=== PATIENT | male | born 1945 | race Two or more races ===

== ENCOUNTER 2020-09-11 13:37 | Inpatient (IN) | payer MEDICARE, OTHER ==
[~2020-09-11] VITALS: Ht 172.7 cm; Wt 92.4 kg
[~2020-09-11 13:37] MED LIST: ALL300T PO; CAR3125T PO; DOCU-94 PO; FERR140T3 PO; FUR40T GT; INSLANTI SC; LEVO200I5 PO; LOS50T GT; METF-372 PO
[2020-09-11 14:35] LABS: Basophils # (auto) 0 10 ^3/uL (0-0.2); Basophils % (auto) 0.4 % (0.0-2.0); Eosinophils # (auto) 0.1 10 ^3/uL (0-0.8); Eosinophils % (auto) 1.4 % (0.0-7.0); Hematocrit 33.3 % (41.0-53.0); Hemoglobin 10.6 g/dL (13.5-17.5); Lymphocytes # (auto) 1.3 10 ^3/uL (0.4-5.4); Lymphocytes % (auto) 14.7 % (10.0-50.0); Mean Corpuscular Hemoglobin 28.2 pg (28.0-32.0); Mean Corpuscular Hgb Conc. 31.9 g/dL (32.0-36.0); Mean Corpuscular Volume 88.2 fL (80.0-100.0); Monocytes # (auto) 0.5 10 ^3/uL (0-1.3); Monocytes % (auto) 5.7 % (0.0-12.0); Neutrophils % (auto) 77.8 % (37.0-80.0); Platelet Count (auto) 233 10^3/uL (140-450); Red Blood Cells 3.77 10^6/uL (4.5-5.90); Red Cell Distribution Width 17.7 % (11.8-14.3)
[2020-09-11 14:55] LABS: Albumin 2.7 g/dL (3.4-5.0); Anion Gap 7 (5-15); Calcium 8.3 mg/dL (8.5-10.1); Carbon Dioxide 14 mmol/L (21-32); Chloride 119 mmol/L (98-107); Glucose 243 mg/dL (74-106); Magnesium 1.9 mg/dL (1.6-2.6); Sodium 140 mmol/L (136-145)
[2020-09-11 15:01] LABS: Alanine Aminotransferase 18 U/L (16-61); Alkaline Phosphatase 96 U/L (45-117); Aspartate Aminotransferase 7 U/L (15-37); BUN/Creatinine Ratio 18.2; Bilirubin, Total 0.4 mg/dL (0.2-1.0); GFR African American 16 mL/min; GFR Non-African American 13 mL/min; Total Protein 6.1 g/dL (6.4-8.2)
[2020-09-11 15:10] LABS: Blood Urea Nitrogen 83 mg/dL (7-18); Potassium 5.7 mmol/L (3.5-5.1)
[2020-09-11] MEDS ORDERED: CALCIUM GLUC 4.65meq/50ml D5AE 50 ML IV ONE (16:00)
[2020-09-11] MEDS ORDERED: SODIUM BICARBONATE 8.4 % INJ 50ML VIAL IV ONE (16:00)
[2020-09-11] MEDS ORDERED: FUROSEMIDE 100 MG/10ML VIAL IV ONE (17:15)
[2020-09-11] MEDS: NIFEdipine ER 30 MG TAB PO SCH (17:53)
[2020-09-11] MEDS: SODIUM ZIRCONIUM CYCL 10 GM PAK PO SCH (17:53)
[2020-09-11] MEDS ORDERED: DEXTROSE (50%) 50ML SYRG IV PRN (18:45)
[2020-09-11 19:03] LABS: Phosphorus 6.2 mg/dL (2.5-4.90); Uric Acid 3.5 mg/dL (3.5-7.2)
[2020-09-11 19:30] LABS: Urine Amorphous Crystal FEW /hpf (None Seen); Urine Bacteria FEW /hpf (None Seen); Urine Blood TRACE /uL (Negative); Urine WBC 2 /hpf (0 - 3)
[2020-09-11 19:44] LABS: Protein, Urine 162.7 mg/dL (0.0-11.9)
--- NOTE | 2020-09-11 21:03 | NUR ---
ER CALLED CARDIO CONSULT WITH DR. AUSTIN.
[2020-09-11] MEDS ORDERED: hydrALAZINE HCL 20 MG/ML VL IV PRN (21:15)
[2020-09-11] MEDS ORDERED: InsuLIN REG 1unit/0.01ml Soln (100units/ml) SC SCH (22:00)
[2020-09-11] MEDS: ACCU-CHEK COMFORT CURVE STRIP VI SCH (22:00)
[2020-09-11 22:20] VITALS: BP 141/76
--- NOTE | 2020-09-11 22:30 | NUR ---
Telemetry admit from SARAH MARTIN admitted to Telemetry unit after SBAR received. Patient oriented to Loree Kaur, primary RN, unit, room, bed, and unit policies regarding patient care and visiting hours. Patient now on continuous telemetry monitoring, tele box # 65 and telemetry reading on arrival to unit is NSR 82. Patient placed on bedside oxygen, weighed by bedscale and encouraged to call if they need something. All questions and concerns addressed, patient verbalized understanding. Note:
[2020-09-11] MEDS ORDERED: LOSA-69 PO (22:47)
[2020-09-11] MEDS ORDERED: INFLUENZA QUAD 2020-2021 0.5 ML SYRG IM ONE (23:15)
[2020-09-12 05:00] VITALS: BP 115/57
[2020-09-12] MEDS: InsuLIN REG 1unit/0.01ml Soln (100units/ml) SC SCH ×4 (06:05→21:06)
[2020-09-12] MEDS: ACCU-CHEK COMFORT CURVE STRIP VI SCH ×4 (06:07→21:07)
[2020-09-12] MEDS: SODIUM ZIRCONIUM CYCL 10 GM PAK PO SCH ×3 (06:20→21:05)
[2020-09-12 06:23] LABS: Basophils # (auto) 0 10 ^3/uL (0-0.2); Basophils % (auto) 0.3 % (0.0-2.0); Eosinophils # (auto) 0.2 10 ^3/uL (0-0.8); Eosinophils % (auto) 1.6 % (0.0-7.0); Hematocrit 32.9 % (41.0-53.0); Hemoglobin 10.6 g/dL (13.5-17.5); Lymphocytes # (auto) 1.2 10 ^3/uL (0.4-5.4); Lymphocytes % (auto) 10.5 % (10.0-50.0); Mean Corpuscular Hemoglobin 28.2 pg (28.0-32.0); Mean Corpuscular Hgb Conc. 32.3 g/dL (32.0-36.0); Mean Corpuscular Volume 87.4 fL (80.0-100.0); Monocytes # (auto) 0.7 10 ^3/uL (0-1.3); Monocytes % (auto) 5.9 % (0.0-12.0); Neutrophils # (auto) 9.7 10 ^3/uL (1.6-8.6); Neutrophils % (auto) 81.7 % (37.0-80.0); Platelet Count (auto) 230 10^3/uL (140-450); Red Blood Cells 3.77 10^6/uL (4.5-5.90); Red Cell Distribution Width 17.1 % (11.8-14.3); White Blood Cell 11.8 10^3/uL (4.4-10.8)
[2020-09-12 06:54] LABS: Albumin 2.7 g/dL (3.4-5.0); Calcium 8.5 mg/dL (8.5-10.1); Potassium 5.4 mmol/L (3.5-5.1)
[2020-09-12 06:56] LABS: BUN/Creatinine Ratio 17.3
[2020-09-12 06:59] LABS: Bilirubin, Total 0.6 mg/dL (0.2-1.0); Total Protein 6.1 g/dL (6.4-8.2)
[2020-09-12 07:59] VITALS: BP 114/61
[2020-09-12] MEDS: FUROSEMIDE 20 MG/2 ML VIAL IV SCH ×2 (08:43→09:42)
[2020-09-12] MEDS: PANTOPRAZOLE 40 MG TAB PO SCH (08:44)
[2020-09-12] MEDS: NIFEdipine ER 30 MG TAB PO SCH (08:44)
[2020-09-12 12:30] VITALS: BP 155/74
[2020-09-12] MEDS ORDERED: DEXTROSE (50%) 50ML SYRG IV PRN ×2 (16:00)
[2020-09-12] MEDS: SODIUM BICARBONATE 50ML VIAL 50 ML in D5W 5% 1,000 ML IV SCH (16:17)
[2020-09-12 16:18] VITALS: BP 119/67
[2020-09-12] MEDS ORDERED: ACCU-CHEK COMFORT CURVE STRIP VI SCH (17:00)
[2020-09-12] MEDS ORDERED: InsuLIN REG 1unit/0.01ml Soln (100units/ml) SC SCH ×2 (17:00)
[2020-09-12] MEDS: SEVELAMER 800 MG TAB PO SCH (17:34)
--- NOTE | 2020-09-12 19:30 | NUR ---
Opening Shift Note Assumed care of patient, awake and alert. No S/S of distress/SOB or pain. Instructed on POC and to call for assist PRN, will continue to monitor for changes Q1hr and PRN.
[2020-09-12 22:00] VITALS: BP 139/72
[2020-09-13] MEDS: SODIUM BICARBONATE 50ML VIAL 50 ML in D5W 5% 1,000 ML IV SCH ×2 (03:46→12:12)
[2020-09-13 05:00] VITALS: BP 142/70
[2020-09-13] MEDS: SODIUM ZIRCONIUM CYCL 10 GM PAK PO SCH (06:00)
[2020-09-13] MEDS: ACCU-CHEK COMFORT CURVE STRIP VI SCH ×3 (06:00→17:08)
[2020-09-13] MEDS: InsuLIN REG 1unit/0.01ml Soln (100units/ml) SC SCH ×3 (06:02→17:08)
[2020-09-13 06:49] LABS: Basophils # (auto) 0 10 ^3/uL (0-0.2); Basophils % (auto) 0.4 % (0.0-2.0); Eosinophils # (auto) 0.3 10 ^3/uL (0-0.8); Eosinophils % (auto) 2.7 % (0.0-7.0); Hematocrit 31.5 % (41.0-53.0); Hemoglobin 10.2 g/dL (13.5-17.5); Lymphocytes # (auto) 1.3 10 ^3/uL (0.4-5.4); Lymphocytes % (auto) 14.3 % (10.0-50.0); Mean Corpuscular Hemoglobin 28.3 pg (28.0-32.0); Mean Corpuscular Hgb Conc. 32.5 g/dL (32.0-36.0); Mean Corpuscular Volume 87.2 fL (80.0-100.0); Monocytes # (auto) 0.7 10 ^3/uL (0-1.3); Monocytes % (auto) 6.9 % (0.0-12.0); Neutrophils # (auto) 7.1 10 ^3/uL (1.6-8.6); Neutrophils % (auto) 75.7 % (37.0-80.0); Platelet Count (auto) 212 10^3/uL (140-450); Red Blood Cells 3.61 10^6/uL (4.5-5.90); Red Cell Distribution Width 17.3 % (11.8-14.3); White Blood Cell 9.4 10^3/uL (4.4-10.8)
[2020-09-13 07:08] LABS: Calcium 8.1 mg/dL (8.5-10.1); Potassium 4.2 mmol/L (3.5-5.1)
[2020-09-13 07:12] LABS: Albumin 2.6 g/dL (3.4-5.0)
[2020-09-13 07:14] LABS: Bilirubin, Total 0.5 mg/dL (0.2-1.0); Total Protein 5.9 g/dL (6.4-8.2)
--- NOTE | 2020-09-13 07:21 | NUR ---
closing note endorsed care to day RN, no distress noted at this time
[2020-09-13] MEDS: PANTOPRAZOLE 40 MG TAB PO SCH (08:09)
[2020-09-13] MEDS: NIFEdipine ER 30 MG TAB PO SCH (08:09)
[2020-09-13 08:10] VITALS: BP 140/72
[2020-09-13] MEDS: SEVELAMER 800 MG TAB PO SCH ×2 (08:10→12:12)
[2020-09-13] MEDS: FUROSEMIDE 20 MG/2 ML VIAL IV SCH (08:10)
[2020-09-13] MEDS ORDERED: LEVOTHYROXINE SODIUM 50 MCG TAB PO ONE (11:30)
[2020-09-13] MEDS ORDERED: FURO1TAB31 PO (11:56)
[2020-09-13] MEDS ORDERED: NIFE1TAB31 PO (11:56)
[2020-09-13] MEDS ORDERED: SEVE800T PO (11:56)
[2020-09-13] MEDS ORDERED: INSREGI SC (12:02)
[2020-09-13] MEDS ORDERED: [UNRECOGNIZED DRUG - CODE] XX (12:02)
[2020-09-13 12:30] VITALS: BP 123/70
--- NOTE | 2020-09-13 12:38 | NUR ---
DR. LEPE AND EVONNE AWARE OF RENAL PANEL VALUES. PER DR. DOUGLASS; PT OK FOR DC.
--- NOTE | 2020-09-13 13:00 | NUR ---
BARRETT CATHETER DC'D, CATHETER INTACT. PT TOLERATE PROCEDURE WELL. PT VOIDED WELL POST-BARRETT REMOVAL.
[2020-09-13 14:00] VITALS: BP 123/70
--- NOTE | 2020-09-13 17:35 | NUR ---
DISCHARGE INSTRUCTIONS PROVIDED TO PT. PT VERBALIZED UNDERSTANDING FOR PRESCRIPTION ORDERS, CONTINUATION OF HOME MEDICATIONS AND STOPPAGE OF [place] PER MD'S INSTRUCTION. PT GIVEN THE INSULIN SLIDING SCALE PER MD'S REQUEST. EDUCATIONAL MATERIAL PROVIDED, ALL QUESTIONS AND CONCERNS ADDRESSED. IV CATHETER DC'D CATHETER INTACT, NO PHLEBITIS. TELE BOX REMOVED AND RETURNED TO TELE DEPT. PT SAFELY ESCORTED OUT OF UNIT VIA WHEELCHAIR. NO S/S OF DISTRESS.
[2020-09-13] MEDS ORDERED: CARVEDILOL 3.125 MG TAB PO SCH (22:00)
[2020-09-13] MEDS ORDERED: INSULIN LANTUS (GLARGINE) 1 /0.01ml (100units/ml) SC SCH (22:00)
[2020-09-14] MEDS ORDERED: LEVOTHYROXINE SODIUM 50 MCG TAB PO SCH (07:00)
[2020-09-14] MEDS ORDERED: ALLOPURINOL 100 MG TAB PO SCH (10:00)
== END 2020-09-13 18:00 | disposition home or self-care (01) | DRG 640 ==
LOC: ER 13:37 → TELE 18:33 → TELE-WESTW 22:21
PROVIDERS: ADMIT Internal Medicine; ATTEND Internal Medicine
DX: E87.5 Hyperkalemia (principal); N18.6 End stage renal disease; N17.9 Acute kidney failure, unspecified; I12.0 Hypertensive chronic kidney disease with stage 5 chronic kidney disease or end stage renal disease; E87.2 Acidosis; I16.0 Hypertensive urgency; E11.65 Type 2 diabetes mellitus with hyperglycemia; E66.9 Obesity, unspecified; D63.8 Anemia in other chronic diseases classified elsewhere; E03.9 Hypothyroidism, unspecified; E83.39 Other disorders of phosphorus metabolism; E11.21 Type 2 diabetes mellitus with diabetic nephropathy; E11.22 Type 2 diabetes mellitus with diabetic chronic kidney disease; E78.5 Hyperlipidemia, unspecified; N28.1 Cyst of kidney, acquired; Z80.3 Family history of malignant neoplasm of breast; Z83.3 Family history of diabetes mellitus; Z68.31 Body mass index [BMI] 31.0-31.9, adult
CPT/HCPCS: 36415; 51702; 76775; 80053; 81001; 82306; 82570; 82962; 83605; 83735; 83880; 83970; 84100; 84156; 84300; 84484; 84550; 85025; 93005; 93306; 96365; 96375; G0378; J0610; J1815

== ENCOUNTER 2021-02-04 20:27 | Inpatient (IN) | payer OTHER ==
[~2021-02-04] VITALS: Ht 162.6 cm; Wt 94.6 kg
[~2021-02-04 20:27] MED LIST changes: -DOCU-94 PO; -FERR140T3 PO; -FUR40T GT; +FURO1TAB31 PO; +INSREGI SC; -LOS50T GT; -METF-372 PO; +NIFE1TAB31 PO; +SEVE800T PO; +[UNRECOGNIZED DRUG - CODE] XX
[2021-02-04] MEDS ORDERED: SODIUM CHLORIDE 0.9% 1,000 ML IV ONE (21:15)
[2021-02-04 22:06] LABS: Basophils # (auto) 0 10 ^3/uL (0-0.2); Basophils % (auto) 0.4 % (0.0-2.0); Eosinophils # (auto) 0 10 ^3/uL (0-0.8); Eosinophils % (auto) 0.3 % (0.0-7.0); Hematocrit 28.5 % (41.0-53.0); Hemoglobin 9.3 g/dL (13.5-17.5); Lymphocytes # (auto) 0.7 10 ^3/uL (0.4-5.4); Lymphocytes % (auto) 8.4 % (10.0-50.0); Mean Corpuscular Hemoglobin 29.9 pg (28.0-32.0); Mean Corpuscular Hgb Conc. 32.5 g/dL (32.0-36.0); Mean Corpuscular Volume 92.1 fL (80.0-100.0); Monocytes # (auto) 0.4 10 ^3/uL (0-1.3); Monocytes % (auto) 4.9 % (0.0-12.0); Neutrophils # (auto) 6.7 10 ^3/uL (1.6-8.6); Nucleated Red Blood Cells % 0.3 %; Platelet Count (auto) 198 10^3/uL (140-450); Red Blood Cells 3.09 10^6/uL (4.5-5.90); Red Cell Distribution Width 17.8 % (11.8-14.3); White Blood Cell 7.7 10^3/uL (4.4-10.8)
[2021-02-04] MEDS ORDERED: NIFE-3 PO (22:18)
[2021-02-04] MEDS ORDERED: ALBU108A14 IN (22:18)
[2021-02-04] MEDS ORDERED: ASPI-543 PO (22:18)
[2021-02-04] MEDS ORDERED: HYDR10TA26 PO (22:18)
[2021-02-04] MEDS ORDERED: PRAV20TA3 PO (22:18)
[2021-02-04 22:26] LABS: Albumin 2.6 g/dL (3.4-5.0); Calcium 6.4 mg/dL (8.5-10.1)
[2021-02-04 22:31] LABS: BUN/Creatinine Ratio 15.4; Bilirubin, Total 0.3 mg/dL (0.2-1.0); Total Protein 5.7 g/dL (6.4-8.2)
[2021-02-04 22:35] LABS: Potassium 6.9 mmol/L (3.5-5.1)
[2021-02-04 22:42] LABS: INR 1.04 (0.9-1.15); Partial Thromboplastin Time 43.6 sec (23.0-31.2)
[2021-02-04] MEDS ORDERED: ALBUTEROL SULF 2.5 MG/0.5ML(0.5%) NEB SOLN NEB ONE (22:45)
[2021-02-04] MEDS ORDERED: DEXTROSE (50%) 50ML SYRG IV ONE (22:45)
[2021-02-04] MEDS ORDERED: SODIUM ZIRCONIUM CYCL 10 GM PAK PO ONE (22:45)
[2021-02-04] MEDS ORDERED: SODIUM BICARBONATE 8.4% INJ 50ML SYRINGE IV ONE (22:45)
[2021-02-04] MEDS ORDERED: InsuLIN REG 1unit/0.01ml Soln (100units/ml) IV ONE (22:45)
[2021-02-04] MEDS ORDERED: CALCIUM GLUC 1,000mg/50ml-NS 50 ML IV ONE (22:45)
[2021-02-04] MEDS ORDERED: FUROSEMIDE 20 MG/2 ML VIAL IV ONE (23:00)
[2021-02-05] VITALS (10 sets, daily range): BP systolic 120–178; BP diastolic 58–78
[2021-02-05] MEDS ORDERED: ALBUTEROL SULF 2.5 MG/0.5ML(0.5%) NEB SOLN NEB ONE ×2 (02:00→09:45)
[2021-02-05] MEDS ORDERED: SODIUM ZIRCONIUM CYCL 10 GM PAK PO ONE ×2 (02:00→09:45)
[2021-02-05] MEDS ORDERED: SODIUM BICARBONATE 8.4% INJ 50ML SYRINGE IV ONE (02:00)
[2021-02-05] MEDS ORDERED: DEXTROSE (50%) 50ML SYRG IV ONE ×2 (02:00→09:45)
[2021-02-05] MEDS ORDERED: CALCIUM GLUC 1,000mg/50ml-NS 50 ML IV ONE (02:00)
[2021-02-05] MEDS ORDERED: InsuLIN REG 1unit/0.01ml Soln (100units/ml) IV ONE ×2 (02:00→09:45)
[2021-02-05] MEDS ORDERED: SODIUM BICARBONATE 50ML VIAL 50 ML in SOD CHL 0.45% 1,000 ML IV ONE (02:15)
[2021-02-05] MEDS ORDERED: SODIUM BICARBONATE 8.4 % INJ 50ML VIAL IV ONE ×2 (02:15→09:45)
[2021-02-05] MEDS ORDERED: MORPHINE SULF INJ 2 MG/ML SYRINGE 1ML IV PRN (02:30)
[2021-02-05] MEDS ORDERED: ONDANSETRON HCL 4 MG/2 ML VIAL IV PRN (02:30)
[2021-02-05] MEDS ORDERED: NITROGLYCERIN 0.4 MG SL TAB SL PRN (02:30)
[2021-02-05] MEDS ORDERED: DEXTROSE (50%) 50ML SYRG IV PRN (02:30)
[2021-02-05] MEDS: ACCU-CHEK COMFORT CURVE STRIP VI SCH ×3 (06:00→18:02)
[2021-02-05] MEDS: InsuLIN REG 1unit/0.01ml Soln (100units/ml) SC SCH ×3 (06:00→18:00)
[2021-02-05 06:47] LABS: BUN/Creatinine Ratio 15.2; Calcium 6.8 mg/dL (8.5-10.1)
[2021-02-05 06:51] LABS: Potassium 5.7 mmol/L (3.5-5.1)
[2021-02-05] MEDS ORDERED: PATI1POW PO (08:41)
[2021-02-05] MEDS ORDERED: FERR-20 PO (08:41)
[2021-02-05] MEDS ORDERED: HEPARIN SODIUM (PORCINE) 5000 UNITS/ML 1ML VIAL ONE (10:57)
[2021-02-05] MEDS: CARVEDILOL 3.125 MG TAB PO SCH ×2 (11:11→22:00)
[2021-02-05] MEDS: PANTOPRAZOLE 40 MG TAB PO SCH (11:11)
[2021-02-05] MEDS ORDERED: LORazepam 2MG/ML-1ML VIAL IV ONE (11:15)
[2021-02-05] MEDS ORDERED: LORazepam 2MG/ML-1ML VIAL ONE (11:16)
[2021-02-05 12:04] LABS: Free T4 (Free Thyroxine) 0.77 ng/dL (0.89-1.76)
[2021-02-05 12:05] LABS: Free T3 1.08 pg/mL (2.3-4.2)
[2021-02-05 12:23] LABS: Urine Amorphous Crystal MOD /hpf (None Seen); Urine Bacteria FEW /hpf (None Seen); Urine Blood 1+ /uL (Negative); Urine Hyaline Cast FEW /lpf (0 - 2); Urine Specific Gravity 1.013 (1.001-1.035); Urine WBC 90 /hpf (0 - 3); Urine WBC Clumps PRESENT /hpf (None Seen)
[2021-02-05] MEDS ORDERED: SODIUM CHL 0.9% 1000 ML BAG XX ONE (13:15)
[2021-02-05 13:37] LABS: BUN/Creatinine Ratio 14.8; Calcium 6.6 mg/dL (8.5-10.1); Potassium 4.8 mmol/L (3.5-5.1)
[2021-02-05 13:45] LABS: % Iron Saturation 35.6 % (20-55)
[2021-02-05 14:29] LABS: Basophils # (auto) 0 10 ^3/uL (0-0.2); Basophils % (auto) 0.2 % (0.0-2.0); Eosinophils % (auto) 0.6 % (0.0-7.0); Lymphocytes # (auto) 0.8 10 ^3/uL (0.4-5.4); Monocytes # (auto) 0.6 10 ^3/uL (0-1.3)
[2021-02-05 14:31] LABS: Eosinophils # (auto) 0.1 10 ^3/uL (0-0.8); Hematocrit 22.6 % (41.0-53.0); Hemoglobin 7.6 g/dL (13.5-17.5); Lymphocytes % (auto) 9.7 % (10.0-50.0); Mean Corpuscular Hemoglobin 29.9 pg (28.0-32.0); Mean Corpuscular Hgb Conc. 33.7 g/dL (32.0-36.0); Mean Corpuscular Volume 88.7 fL (80.0-100.0); Monocytes % (auto) 8.2 % (0.0-12.0); Neutrophils # (auto) 6.4 10 ^3/uL (1.6-8.6); Neutrophils % (auto) 81.3 % (37.0-80.0); Nucleated Red Blood Cells % 0.2 %; Platelet Count (auto) 192 10^3/uL (140-450); Red Blood Cells 2.55 10^6/uL (4.5-5.90); Red Cell Distribution Width 16.8 % (11.8-14.3); White Blood Cell 7.8 10^3/uL (4.4-10.8)
[2021-02-05] MEDS: FUROSEMIDE 40 MG TAB PO SCH (18:00)
[2021-02-05] MEDS ORDERED: EPOETIN ALFA-EPBX 10,000 UNIT/1ML VIAL SC ONE (21:00)
[2021-02-05] MEDS: ATORVASTATIN 20 MG TAB PO SCH (22:00)
[2021-02-05] MEDS ORDERED: hydrALAZINE HCL 20 MG/ML VL ONE (23:57)
[2021-02-05] MEDS: hydrALAZINE HCL 20 MG/ML VL IV PRN (23:59)
[2021-02-06] VITALS (20 sets, daily range): BP systolic 136–206; BP diastolic 56–92
[2021-02-06] MEDS: ACCU-CHEK COMFORT CURVE STRIP VI SCH ×4 (00:06→18:00)
[2021-02-06] MEDS: FUROSEMIDE 40 MG TAB PO SCH ×2 (06:00→16:39)
[2021-02-06] MEDS: InsuLIN REG 1unit/0.01ml Soln (100units/ml) SC SCH ×4 (06:00→18:44)
[2021-02-06 06:42] LABS: Basophils # (auto) 0 10 ^3/uL (0-0.2); Eosinophils # (auto) 0.1 10 ^3/uL (0-0.8); Lymphocytes # (auto) 1.1 10 ^3/uL (0.4-5.4); Mean Corpuscular Hemoglobin 29.7 pg (28.0-32.0); Mean Corpuscular Hgb Conc. 33.8 g/dL (32.0-36.0); Nucleated Red Blood Cells % 0.1 %
[2021-02-06] MEDS: LEVOTHYROXINE SODIUM 100 MCG TAB PO SCH (06:42)
[2021-02-06 06:43] LABS: BUN/Creatinine Ratio 13.1; Calcium 6.9 mg/dL (8.5-10.1); Phosphorus 6.3 mg/dL (2.5-4.90); Potassium 4.1 mmol/L (3.5-5.1)
[2021-02-06 06:46] LABS: Basophils % (auto) 0.4 % (0.0-2.0); Eosinophils % (auto) 0.5 % (0.0-7.0); Hematocrit 23.7 % (41.0-53.0); Lymphocytes % (auto) 11.3 % (10.0-50.0); Mean Corpuscular Volume 87.9 fL (80.0-100.0); Monocytes % (auto) 10.2 % (0.0-12.0); Neutrophils # (auto) 7.8 10 ^3/uL (1.6-8.6); Neutrophils % (auto) 77.6 % (37.0-80.0); Platelet Count (auto) 197 10^3/uL (140-450); Red Cell Distribution Width 16.4 % (11.8-14.3)
[2021-02-06] MEDS ORDERED: SODIUM CHL 0.9% 1000 ML BAG XX ONE (07:00)
[2021-02-06] MEDS: CARVEDILOL 3.125 MG TAB PO SCH ×2 (10:00→21:51)
[2021-02-06] MEDS: PANTOPRAZOLE 40 MG TAB PO SCH (10:00)
[2021-02-06 15:11] LABS: Hepatitis A Ab IgM Negative; Hepatitis B Core IgM Negative; Hepatitis B Surface Antigen Negative (Negative); Hepatitis C Antibody Negative (Negative)
[2021-02-06] MEDS: PIPERACILLIN-TAZOB 2.25GM 50 ML IV SCH ×2 (15:26→21:50)
[2021-02-06] MEDS ORDERED: ACETAMINOPHEN 500 MG TAB PO PRN (15:45)
[2021-02-06] MEDS ORDERED: HYDROcodone-ACET 5/325MG TAB PO PRN (15:45)
[2021-02-06] MEDS: amLODIPine BESYLATE 5 MG TAB PO SCH (16:38)
[2021-02-06] MEDS: hydrALAZINE HCL 20 MG/ML VL IV PRN (18:28)
[2021-02-06] MEDS ORDERED: EPOETIN ALFA-EPBX 10,000 UNIT/1ML VIAL SC ONE (21:00)
[2021-02-06] MEDS: LINEZOLID 600MG/300ML 300 ML IV SCH (21:50)
[2021-02-06] MEDS: ATORVASTATIN 20 MG TAB PO SCH (21:51)
[2021-02-07] VITALS (14 sets, daily range): BP systolic 107–149; BP diastolic 51–72
[2021-02-07] MEDS: FUROSEMIDE 40 MG TAB PO SCH ×2 (05:37→18:00)
[2021-02-07] MEDS: PIPERACILLIN-TAZOB 2.25GM 50 ML IV SCH (05:37)
[2021-02-07] MEDS: LEVOTHYROXINE SODIUM 100 MCG TAB PO SCH (05:37)
[2021-02-07] MEDS: ACCU-CHEK COMFORT CURVE STRIP VI SCH ×4 (05:38→18:00)
[2021-02-07 06:40] LABS: Basophils # (auto) 0 10 ^3/uL (0-0.2); Basophils % (auto) 0.2 % (0.0-2.0); Eosinophils # (auto) 0.1 10 ^3/uL (0-0.8); Nucleated Red Blood Cells % 0.1 %
[2021-02-07 06:42] LABS: Hematocrit 23.9 % (41.0-53.0); Hemoglobin 8.2 g/dL (13.5-17.5); Lymphocytes # (auto) 1.2 10 ^3/uL (0.4-5.4); Lymphocytes % (auto) 12.5 % (10.0-50.0); Mean Corpuscular Hemoglobin 30.1 pg (28.0-32.0); Mean Corpuscular Hgb Conc. 34.1 g/dL (32.0-36.0); Mean Corpuscular Volume 88.2 fL (80.0-100.0); Monocytes # (auto) 1.2 10 ^3/uL (0-1.3); Monocytes % (auto) 11.8 % (0.0-12.0); Neutrophils # (auto) 7.3 10 ^3/uL (1.6-8.6); Neutrophils % (auto) 74.5 % (37.0-80.0); Platelet Count (auto) 185 10^3/uL (140-450); Red Blood Cells 2.71 10^6/uL (4.5-5.90); Red Cell Distribution Width 16.6 % (11.8-14.3); White Blood Cell 9.8 10^3/uL (4.4-10.8)
[2021-02-07 06:57] LABS: BUN/Creatinine Ratio 10.5; Calcium 6.8 mg/dL (8.5-10.1); Potassium 3.7 mmol/L (3.5-5.1)
[2021-02-07] MEDS: amLODIPine BESYLATE 5 MG TAB PO SCH (10:00)
[2021-02-07] MEDS: CARVEDILOL 3.125 MG TAB PO SCH ×2 (10:00→13:04)
[2021-02-07] MEDS: PANTOPRAZOLE 40 MG TAB PO SCH (10:19)
[2021-02-07] MEDS: LINEZOLID 600MG/300ML 300 ML IV SCH (10:20)
[2021-02-07] MEDS: InsuLIN REG 1unit/0.01ml Soln (100units/ml) SC SCH ×3 (12:00→18:00)
[2021-02-07] MEDS ORDERED: AMOXICILLIN/CLAVULAN 500 MG TAB PO ONE (13:45)
[2021-02-07] MEDS ORDERED: fentaNYL CITRATE 100 MCG/2 ML VL ONE (13:47)
[2021-02-07] MEDS ORDERED: LIDOCAINE 2%HCL (LOCAL ANESTH.) INJ 20ML MDV ONE (13:47)
[2021-02-07] MEDS ORDERED: MIDAZOLAM HCL 1MG/1ML-2 ML VIAL ONE (13:47)
[2021-02-07] MEDS ORDERED: AMOX500T92 PO (14:15)
[2021-02-07] MEDS ORDERED: LEVO200I5 PO (14:15)
[2021-02-07] MEDS ORDERED: CAR3125T PO (14:15)
[2021-02-07] MEDS ORDERED: HEPARIN SODIUM (PORCINE) 5000 UNITS/ML 1ML VIAL ONE (14:52)
[2021-02-08] MEDS ORDERED: AMOXICILLIN/CLAVULAN 500 MG TAB PO SCH (10:00)
== END 2021-02-07 20:10 | disposition home health service (06) | DRG 871 ==
LOC: EDBD 20:27 → ER 20:28 → TELE 20:29 → DOU IN ICU 02-05 04:42
PROVIDERS: ADMIT Nurse Practitioner; ATTEND Internal Medicine
PROC: 5A1D70Z Performance of Urinary Filtration, Intermittent, Less than 6 Hours Per Day (ICD-10-PCS; principal; 2021-02-05)
PROC: 06HY33Z Insertion of Infusion Device into Lower Vein, Percutaneous Approach (ICD-10-PCS; 2021-02-05)
PROC: B54BZZA Ultrasonography of Right Lower Extremity Veins, Guidance (ICD-10-PCS; 2021-02-05)
PROC: 0JH63XZ Insertion of Tunneled Vascular Access Device into Chest Subcutaneous Tissue and Fascia, Percutaneous Approach (ICD-10-PCS; 2021-02-07)
PROC: 02H633Z Insertion of Infusion Device into Right Atrium, Percutaneous Approach (ICD-10-PCS; 2021-02-07)
PROC: B548ZZA Ultrasonography of Superior Vena Cava, Guidance (ICD-10-PCS; 2021-02-07)
DX: A41.9 Sepsis, unspecified organism (principal); E43 Unspecified severe protein-calorie malnutrition; J96.01 Acute respiratory failure with hypoxia; G93.41 Metabolic encephalopathy; N18.6 End stage renal disease; N17.9 Acute kidney failure, unspecified; E87.0 Hyperosmolality and hypernatremia; J98.11 Atelectasis; N39.0 Urinary tract infection, site not specified; I13.2 Hypertensive heart and chronic kidney disease with heart failure and with stage 5 chronic kidney disease, or end stage renal disease; I50.32 Chronic diastolic (congestive) heart failure; Z20.822 Contact with and (suspected) exposure to COVID-19; E87.5 Hyperkalemia; E83.51 Hypocalcemia; D63.8 Anemia in other chronic diseases classified elsewhere; D63.1 Anemia in chronic kidney disease; E11.22 Type 2 diabetes mellitus with diabetic chronic kidney disease; Z68.32 Body mass index [BMI] 32.0-32.9, adult; Z79.82 Long term (current) use of aspirin; Z79.899 Other long term (current) drug therapy; Z79.4 Long term (current) use of insulin
CPT/HCPCS: 36415; 36600; 70450; 71045; 76775; 76942; 80048; 80053; 80074; 81001; 82140; 82728; 82805; 82962; 83540; 83550; 83605; 83880; 84100; 84132; 84439; 84443; 84481; 84484; 85025; 85379; 85610; 85730; 86850; 86900; 86901; 87040; 87081; 87086; 87426; 90935; 93005; 93970; 94640; 94644; 94645; 97163; 99152; 99153; 99291; G0378; J1642; J1815; J2250; J2543

== ENCOUNTER 2021-09-22 08:39 | Inpatient (IN) | payer OTHER ==
[~2021-09-22] VITALS: Ht 170.2 cm; Wt 97.9 kg
[~2021-09-22 08:39] MED LIST changes: +ALBU108A14 IN; +AMOX500T92 PO; +ASPI-543 PO; +FERR-20 PO; -INSREGI SC; +NIFE-3 PO; -NIFE1TAB31 PO; +PRAV20TA3 PO; -SEVE800T PO; -[UNRECOGNIZED DRUG - CODE] XX
[2021-09-22] MEDS ORDERED: FUROSEMIDE 40 MG/4 ML VIAL IV ONE (10:00)
[2021-09-22 10:22] LABS: Basophils # (auto) 0.1 10 ^3/uL (0-0.2); Basophils % (auto) 0.4 % (0.0-2.0); Eosinophils # (auto) 0 10 ^3/uL (0-0.8); Eosinophils % (auto) 0.1 % (0.0-7.0); Hematocrit 35.7 % (41.0-53.0); Hemoglobin 11.5 g/dL (13.5-17.5); Lymphocytes # (auto) 0.8 10 ^3/uL (0.4-5.4); Lymphocytes % (auto) 5.7 % (10.0-50.0); Mean Corpuscular Hemoglobin 27.8 pg (28.0-32.0); Mean Corpuscular Hgb Conc. 32.2 g/dL (32.0-36.0); Mean Corpuscular Volume 86.3 fL (80.0-100.0); Monocytes # (auto) 0.7 10 ^3/uL (0-1.3); Neutrophils # (auto) 12.2 10 ^3/uL (1.6-8.6); Neutrophils % (auto) 88.8 % (37.0-80.0); Red Blood Cells 4.13 10^6/uL (4.5-5.90); Red Cell Distribution Width 14.4 % (11.8-14.3); White Blood Cell 13.7 10^3/uL (4.4-10.8)
[2021-09-22 10:47] LABS: Calcium 8.8 mg/dL (8.5-10.1); Potassium 4.8 mmol/L (3.5-5.1)
[2021-09-22 10:54] LABS: BUN/Creatinine Ratio 11.1; Bilirubin, Total 0.7 mg/dL (0.2-1.0); Total Protein 7.2 g/dL (6.4-8.2)
[2021-09-22] MEDS ORDERED: MORPHINE SULFATE 4 MG/ML SYR/VIAL IV PRN (13:30)
[2021-09-22] MEDS ORDERED: HYDROcodone-ACET 5/325MG TAB PO PRN (13:30)
[2021-09-22] MEDS ORDERED: MORPHINE SULFATE INJECTION 2 MG/ML SYRG IV PRN (13:30)
[2021-09-22] MEDS ORDERED: NITROGLYCERIN 0.4 MG SL TAB SL PRN (13:30)
[2021-09-22] MEDS ORDERED: ONDANSETRON HCL 4 MG/2 ML VIAL IV PRN (13:30)
[2021-09-22] MEDS ORDERED: DEXTROSE (50%) 50ML SYRG IV PRN (14:00)
[2021-09-22] MEDS ORDERED: VANCOMYCIN PER PHARMACY 0 MG IV SCH (14:00)
[2021-09-22] MEDS ORDERED: FUROSEMIDE 100 MG/10ML VIAL IV ONE (14:00)
[2021-09-22] MEDS ORDERED: VANCOMYCIN 1GM/250ML 250 ML IV ONE (15:00)
[2021-09-22] MEDS: InsuLIN REG 1unit/0.01ml Soln (100units/ml) SC SCH ×2 (16:44→22:00)
[2021-09-22] MEDS: ACCU-CHEK COMFORT CURVE STRIP VI SCH ×2 (16:47→22:25)
[2021-09-22] MEDS: FERROUS SULFATE 325mg EC TAB PO SCH (18:14)
[2021-09-22] MEDS: ALBUTEROL SULF 2.5 MG/0.5ML(0.5%) NEB SOLN NEB SCH (18:19)
[2021-09-22 19:25] VITALS: BP 156/68
[2021-09-22 20:38] LABS: Urine Bacteria FEW /hpf (None Seen); Urine Blood 3+ /uL (Negative); Urine Specific Gravity 1.011 (1.001-1.035); Urine WBC 68 /hpf (0 - 3)
[2021-09-22 21:25] VITALS: BP 178/76
[2021-09-22] MEDS: PIPERACILLIN-TAZOB 2.25GM 50 ML IV SCH (22:24)
[2021-09-22] MEDS: INSULIN LANTUS (GLARGINE) 1 /0.01ml (100units/ml) SC SCH (22:25)
[2021-09-22] MEDS: CARVEDILOL 3.125 MG TAB PO SCH (22:26)
[2021-09-22] MEDS: hydrALAZINE HCL 20 MG/ML VL IV PRN (23:18)
[2021-09-23] MEDS: ALBUTEROL SULF 2.5 MG/0.5ML(0.5%) NEB SOLN NEB SCH ×4 (00:03→18:05)
[2021-09-23 05:00] VITALS: BP 172/76
[2021-09-23] MEDS: hydrALAZINE HCL 20 MG/ML VL IV PRN (05:04)
[2021-09-23] MEDS: ACCU-CHEK COMFORT CURVE STRIP VI SCH ×4 (06:35→22:14)
[2021-09-23] MEDS: LEVOTHYROXINE SODIUM 100 MCG TAB PO SCH (06:35)
[2021-09-23] MEDS: InsuLIN REG 1unit/0.01ml Soln (100units/ml) SC SCH ×4 (06:36→22:00)
[2021-09-23] MEDS: ALBUMIN 25% 100 ML IV SCH ×3 (06:56→07:05)
[2021-09-23] MEDS ORDERED: SODIUM CHL 0.9% 1000 ML BAG XX ONE (07:00)
[2021-09-23 09:00] VITALS: BP 121/57
[2021-09-23 09:02] LABS: Basophils # (auto) 0.1 10 ^3/uL (0-0.2); Basophils % (auto) 0.5 % (0.0-2.0); Eosinophils # (auto) 0 10 ^3/uL (0-0.8); Hematocrit 36.6 % (41.0-53.0); Hemoglobin 11.8 g/dL (13.5-17.5); Lymphocytes # (auto) 0.7 10 ^3/uL (0.4-5.4); Lymphocytes % (auto) 3.7 % (10.0-50.0); Mean Corpuscular Hemoglobin 27.8 pg (28.0-32.0); Mean Corpuscular Hgb Conc. 32.2 g/dL (32.0-36.0); Mean Corpuscular Volume 86.2 fL (80.0-100.0); Monocytes % (auto) 5.5 % (0.0-12.0); Neutrophils # (auto) 16.2 10 ^3/uL (1.6-8.6); Neutrophils % (auto) 90.3 % (37.0-80.0); Red Blood Cells 4.25 10^6/uL (4.5-5.90); Red Cell Distribution Width 14.8 % (11.8-14.3); White Blood Cell 17.9 10^3/uL (4.4-10.8)
[2021-09-23 09:20] LABS: Calcium 9.4 mg/dL (8.5-10.1); Potassium 3.8 mmol/L (3.5-5.1)
[2021-09-23 09:26] LABS: BUN/Creatinine Ratio 12.2; Bilirubin, Total 1.3 mg/dL (0.2-1.0); Phosphorus 2.8 mg/dL (2.5-4.90)
[2021-09-23] MEDS ORDERED: FUROSEMIDE 40 MG TAB PO SCH (10:00)
[2021-09-23] MEDS: FERROUS SULFATE 325mg EC TAB PO SCH ×2 (10:29→18:00)
[2021-09-23] MEDS: FUROSEMIDE 100 MG/10ML VIAL IV SCH (10:30)
[2021-09-23] MEDS: CARVEDILOL 3.125 MG TAB PO SCH ×2 (10:31→21:55)
[2021-09-23] MEDS: PRAVASTATIN SODIUM 20 MG TAB PO SCH (10:31)
[2021-09-23] MEDS: ASPirin-EC 81 mg tab PO SCH (10:31)
[2021-09-23] MEDS: PIPERACILLIN-TAZOB 2.25GM 50 ML IV SCH ×2 (10:31→21:54)
[2021-09-23] MEDS: ALLOPURINOL 300 MG TAB PO SCH (10:32)
[2021-09-23] MEDS: NIFEdipine ER 30 MG TAB PO SCH (10:32)
[2021-09-23 12:28] VITALS: BP 147/70
[2021-09-23] MEDS ORDERED: BISACODYL 5 MG EC TAB PO ONE (14:00)
[2021-09-23] MEDS ORDERED: VANCOMYCIN 1GM/250ML 250 ML IV ONE (14:00)
[2021-09-23 17:09] VITALS: BP 138/67
[2021-09-23 20:00] VITALS: BP 123/56
[2021-09-23] MEDS ORDERED: EPOETIN ALFA-EPBX 10,000 UNIT/1ML VIAL SC ONE (21:00)
[2021-09-23] MEDS: HEPARIN SODIUM (PORCINE) 5000 UNITS/ML 1ML VIAL SC SCH (21:55)
[2021-09-23 22:07] VITALS: BP 123/56
[2021-09-23] MEDS: INSULIN LANTUS (GLARGINE) 1 /0.01ml (100units/ml) SC SCH (22:13)
[2021-09-24] MEDS: ALBUTEROL SULF 2.5 MG/0.5ML(0.5%) NEB SOLN NEB SCH ×5 (00:05→22:42)
[2021-09-24 04:57] VITALS: BP 140/75
[2021-09-24 06:08] LABS: Basophils # (auto) 0 10 ^3/uL (0-0.2); Basophils % (auto) 0.1 % (0.0-2.0); Eosinophils # (auto) 0 10 ^3/uL (0-0.8); Eosinophils % (auto) 0.1 % (0.0-7.0); Hematocrit 31.6 % (41.0-53.0); Hemoglobin 10.3 g/dL (13.5-17.5); Lymphocytes # (auto) 0.8 10 ^3/uL (0.4-5.4); Lymphocytes % (auto) 5.8 % (10.0-50.0); Mean Corpuscular Hgb Conc. 32.6 g/dL (32.0-36.0); Monocytes # (auto) 0.9 10 ^3/uL (0-1.3); Monocytes % (auto) 6.8 % (0.0-12.0); Neutrophils # (auto) 12.2 10 ^3/uL (1.6-8.6); Neutrophils % (auto) 87.2 % (37.0-80.0); Nucleated Red Blood Cells % 0.1 %; Red Blood Cells 3.68 10^6/uL (4.5-5.90); Red Cell Distribution Width 14.6 % (11.8-14.3)
[2021-09-24 06:32] LABS: BUN/Creatinine Ratio 11.9; Calcium 9.2 mg/dL (8.5-10.1); Magnesium 2.3 mg/dL (1.6-2.6); Potassium 4.4 mmol/L (3.5-5.1)
[2021-09-24] MEDS ORDERED: SODIUM CHL 0.9% 1000 ML BAG XX ONE (07:00)
[2021-09-24] MEDS: ACCU-CHEK COMFORT CURVE STRIP VI SCH ×4 (07:11→22:27)
[2021-09-24] MEDS: LEVOTHYROXINE SODIUM 100 MCG TAB PO SCH (07:11)
[2021-09-24] MEDS: InsuLIN REG 1unit/0.01ml Soln (100units/ml) SC SCH ×4 (07:13→22:00)
[2021-09-24 08:34] VITALS: BP 127/64
[2021-09-24] MEDS: FERROUS SULFATE 325mg EC TAB PO SCH ×2 (10:23→18:39)
[2021-09-24] MEDS: FUROSEMIDE 100 MG/10ML VIAL IV SCH (10:24)
[2021-09-24] MEDS: CARVEDILOL 3.125 MG TAB PO SCH ×2 (10:24→22:26)
[2021-09-24] MEDS: PIPERACILLIN-TAZOB 2.25GM 50 ML IV SCH ×2 (10:24→22:25)
[2021-09-24] MEDS: ALLOPURINOL 300 MG TAB PO SCH (10:25)
[2021-09-24] MEDS: ASPirin-EC 81 mg tab PO SCH (10:25)
[2021-09-24] MEDS: PRAVASTATIN SODIUM 20 MG TAB PO SCH (10:25)
[2021-09-24] MEDS: NIFEdipine ER 30 MG TAB PO SCH (10:25)
[2021-09-24] MEDS: HEPARIN SODIUM (PORCINE) 5000 UNITS/ML 1ML VIAL SC SCH ×2 (10:26→22:28)
[2021-09-24 13:00] VITALS: BP 124/72
[2021-09-24] MEDS: POLYETHYLENE GLYCOL 17 GM PWDR PO SCH (15:34)
[2021-09-24 16:30] VITALS: BP 124/59
[2021-09-24] MEDS: LACTULOSE 20Gm/30ML SOLN PO SCH (18:39)
[2021-09-24 20:00] VITALS: BP 104/59
[2021-09-24] MEDS ORDERED: EPOETIN ALFA-EPBX 10,000 UNIT/1ML VIAL SC ONE (21:00)
[2021-09-24 22:00] VITALS: BP 104/59
[2021-09-24] MEDS ORDERED: DOCUSATE ORAL LIQUID 100 MG/10 ML UD GT SCH (22:00)
[2021-09-24] MEDS: SENNA 8.6 MG TAB PO SCH (22:25)
[2021-09-24] MEDS: INSULIN LANTUS (GLARGINE) 1 /0.01ml (100units/ml) SC SCH (22:28)
[2021-09-25] VITALS (7 sets, daily range): BP systolic 96–125; BP diastolic 50–62
[2021-09-25] MEDS: LACTULOSE 20Gm/30ML SOLN PO SCH ×2 (00:06→05:40)
[2021-09-25] MEDS: ALBUTEROL SULF 2.5 MG/0.5ML(0.5%) NEB SOLN NEB SCH ×6 (01:59→21:46)
[2021-09-25] MEDS: LEVOTHYROXINE SODIUM 100 MCG TAB PO SCH (06:44)
[2021-09-25] MEDS: ACCU-CHEK COMFORT CURVE STRIP VI SCH ×4 (06:45→22:43)
[2021-09-25] MEDS: InsuLIN REG 1unit/0.01ml Soln (100units/ml) SC SCH ×4 (06:45→22:42)
[2021-09-25 06:47] LABS: Basophils # (auto) 0 10 ^3/uL (0-0.2); Basophils % (auto) 0.4 % (0.0-2.0); Eosinophils # (auto) 0.1 10 ^3/uL (0-0.8); Eosinophils % (auto) 0.8 % (0.0-7.0); Hematocrit 30.9 % (41.0-53.0); Hemoglobin 10.2 g/dL (13.5-17.5); Lymphocytes # (auto) 1.1 10 ^3/uL (0.4-5.4); Lymphocytes % (auto) 11.4 % (10.0-50.0); Mean Corpuscular Hemoglobin 28.3 pg (28.0-32.0); Mean Corpuscular Volume 85.6 fL (80.0-100.0); Monocytes # (auto) 0.9 10 ^3/uL (0-1.3); Monocytes % (auto) 8.9 % (0.0-12.0); Neutrophils # (auto) 7.8 10 ^3/uL (1.6-8.6); Neutrophils % (auto) 78.5 % (37.0-80.0); Red Blood Cells 3.61 10^6/uL (4.5-5.90)
[2021-09-25 06:57] LABS: Calcium 9.2 mg/dL (8.5-10.1); Potassium 4.5 mmol/L (3.5-5.1)
[2021-09-25 07:02] LABS: BUN/Creatinine Ratio 11.5; Magnesium 2.6 mg/dL (1.6-2.6)
[2021-09-25] MEDS: FUROSEMIDE 100 MG/10ML VIAL IV SCH (09:20)
[2021-09-25] MEDS: PIPERACILLIN-TAZOB 2.25GM 50 ML IV SCH ×2 (09:20→22:13)
[2021-09-25] MEDS: ALLOPURINOL 300 MG TAB PO SCH (09:21)
[2021-09-25] MEDS: ASPirin-EC 81 mg tab PO SCH (09:21)
[2021-09-25] MEDS: FERROUS SULFATE 325mg EC TAB PO SCH ×2 (09:21→17:45)
[2021-09-25] MEDS: POLYETHYLENE GLYCOL 17 GM PWDR PO SCH (09:21)
[2021-09-25] MEDS: PRAVASTATIN SODIUM 20 MG TAB PO SCH (09:21)
[2021-09-25] MEDS: NIFEdipine ER 30 MG TAB PO SCH (09:22)
[2021-09-25] MEDS: CARVEDILOL 3.125 MG TAB PO SCH ×2 (09:22→22:00)
[2021-09-25] MEDS: ACETAMINOPHEN 325 MG TAB PO PRN ×2 (09:23→17:49)
[2021-09-25] MEDS: HEPARIN SODIUM (PORCINE) 5000 UNITS/ML 1ML VIAL SC SCH ×2 (09:24→22:00)
[2021-09-25] MEDS ORDERED: DOCUSATE ORAL LIQUID 100 MG/10 ML UD PO SCH (10:00)
[2021-09-25] MEDS ORDERED: SODIUM CHL 0.9% 1000 ML BAG XX ONE (10:45)
[2021-09-25] MEDS ORDERED: DOCUSATE ORAL LIQUID 100 MG/10 ML UD PO PRN (12:30)
[2021-09-25] MEDS ORDERED: LACTULOSE 20Gm/30ML SOLN PO PRN (12:30)
[2021-09-25] MEDS ORDERED: IOHEXOL 350 MG/ML 100ML IJ ONE ×2 (14:39→15:28)
[2021-09-25] MEDS ORDERED: VANCOMYCIN 1GM/250ML 250 ML IV ONE (21:00)
[2021-09-25] MEDS ORDERED: EPOETIN ALFA-EPBX 10,000 UNIT/1ML VIAL SC ONE (21:00)
[2021-09-25] MEDS: SENNA 8.6 MG TAB PO SCH (22:14)
[2021-09-25] MEDS: INSULIN LANTUS (GLARGINE) 1 /0.01ml (100units/ml) SC SCH (22:43)
[2021-09-26] VITALS (7 sets, daily range): BP systolic 127–150; BP diastolic 65–91
[2021-09-26] MEDS: ALBUTEROL SULF 2.5 MG/0.5ML(0.5%) NEB SOLN NEB SCH ×6 (01:46→22:48)
[2021-09-26 06:13] LABS: Hematocrit 29.1 % (41.0-53.0); Hemoglobin 9.8 g/dL (13.5-17.5)
[2021-09-26 06:19] LABS: Potassium 4.4 mmol/L (3.5-5.1)
[2021-09-26 06:25] LABS: BUN/Creatinine Ratio 12.6
[2021-09-26] MEDS: InsuLIN REG 1unit/0.01ml Soln (100units/ml) SC SCH ×4 (06:42→22:15)
[2021-09-26] MEDS: LEVOTHYROXINE SODIUM 100 MCG TAB PO SCH (06:42)
[2021-09-26] MEDS: ACCU-CHEK COMFORT CURVE STRIP VI SCH ×4 (06:43→21:59)
[2021-09-26] MEDS ORDERED: SODIUM CHL 0.9% 1000 ML BAG XX ONE (07:00)
[2021-09-26] MEDS: FERROUS SULFATE 325mg EC TAB PO SCH ×2 (08:00→18:02)
[2021-09-26] MEDS: PIPERACILLIN-TAZOB 2.25GM 50 ML IV SCH ×2 (11:40→22:00)
[2021-09-26] MEDS: POLYETHYLENE GLYCOL 17 GM PWDR PO SCH (11:40)
[2021-09-26] MEDS: FUROSEMIDE 100 MG/10ML VIAL IV SCH ×2 (11:43→22:00)
[2021-09-26] MEDS: PRAVASTATIN SODIUM 20 MG TAB PO SCH (11:45)
[2021-09-26] MEDS: HEPARIN SODIUM (PORCINE) 5000 UNITS/ML 1ML VIAL SC SCH ×2 (11:45→22:15)
[2021-09-26] MEDS: ASPirin-EC 81 mg tab PO SCH (11:46)
[2021-09-26] MEDS: CARVEDILOL 3.125 MG TAB PO SCH ×2 (11:48→21:57)
[2021-09-26] MEDS: NIFEdipine ER 30 MG TAB PO SCH (11:49)
[2021-09-26] MEDS: ALLOPURINOL 300 MG TAB PO SCH (11:50)
[2021-09-26] MEDS ORDERED: EPOETIN ALFA-EPBX 10,000 UNIT/1ML VIAL SC ONE (21:00)
[2021-09-26] MEDS: SENNA 8.6 MG TAB PO SCH (21:57)
[2021-09-26] MEDS: INSULIN LANTUS (GLARGINE) 1 /0.01ml (100units/ml) SC SCH (22:06)
[2021-09-27] MEDS: ALBUTEROL SULF 2.5 MG/0.5ML(0.5%) NEB SOLN NEB SCH ×5 (02:50→14:10)
[2021-09-27 05:00] VITALS: BP 134/57
[2021-09-27] MEDS: ACCU-CHEK COMFORT CURVE STRIP VI SCH ×2 (06:29→11:30)
[2021-09-27] MEDS: InsuLIN REG 1unit/0.01ml Soln (100units/ml) SC SCH ×2 (06:30→11:30)
[2021-09-27] MEDS: LEVOTHYROXINE SODIUM 100 MCG TAB PO SCH (06:31)
[2021-09-27 08:00] VITALS: BP 143/59
[2021-09-27] MEDS: FERROUS SULFATE 325mg EC TAB PO SCH (08:08)
[2021-09-27 09:00] VITALS: BP 143/59
[2021-09-27] MEDS: PIPERACILLIN-TAZOB 2.25GM 50 ML IV SCH (10:23)
[2021-09-27] MEDS: FUROSEMIDE 100 MG/10ML VIAL IV SCH (10:24)
[2021-09-27] MEDS: POLYETHYLENE GLYCOL 17 GM PWDR PO SCH (10:24)
[2021-09-27] MEDS: ALLOPURINOL 300 MG TAB PO SCH (10:25)
[2021-09-27] MEDS: ASPirin-EC 81 mg tab PO SCH (10:25)
[2021-09-27] MEDS: PRAVASTATIN SODIUM 20 MG TAB PO SCH (10:26)
[2021-09-27] MEDS: CARVEDILOL 3.125 MG TAB PO SCH (10:26)
[2021-09-27] MEDS: NIFEdipine ER 30 MG TAB PO SCH (10:28)
[2021-09-27] MEDS: HEPARIN SODIUM (PORCINE) 5000 UNITS/ML 1ML VIAL SC SCH (10:34)
[2021-09-27 13:00] VITALS: BP 122/67
[2021-09-27] MEDS ORDERED: CIPR-173 PO (13:36)
[2021-09-27] MEDS ORDERED: FURO1TAB31 PO (13:36)
== END 2021-09-27 16:10 | disposition home or self-care (01) | DRG 193 ==
LOC: ER 08:39 → TELE 13:26 → TELE-EAST 21:23 → TELE-CENTR 09-23 06:20
PROVIDERS: ADMIT Internal Medicine; ATTEND Internal Medicine
PROC: 5A1D70Z Performance of Urinary Filtration, Intermittent, Less than 6 Hours Per Day (ICD-10-PCS; principal; 2021-09-23)
PROC: 5A1D70Z Performance of Urinary Filtration, Intermittent, Less than 6 Hours Per Day (ICD-10-PCS; 2021-09-24)
PROC: 5A1D70Z Performance of Urinary Filtration, Intermittent, Less than 6 Hours Per Day (ICD-10-PCS; 2021-09-26)
DX: J18.9 Pneumonia, unspecified organism (principal); J96.01 Acute respiratory failure with hypoxia; I50.33 Acute on chronic diastolic (congestive) heart failure; N18.6 End stage renal disease; N17.9 Acute kidney failure, unspecified; I13.2 Hypertensive heart and chronic kidney disease with heart failure and with stage 5 chronic kidney disease, or end stage renal disease; R04.2 Hemoptysis; N39.0 Urinary tract infection, site not specified; E11.22 Type 2 diabetes mellitus with diabetic chronic kidney disease; D72.829 Elevated white blood cell count, unspecified; E66.9 Obesity, unspecified; Z20.822 Contact with and (suspected) exposure to COVID-19; Z79.899 Other long term (current) drug therapy; Z80.3 Family history of malignant neoplasm of breast; Z99.2 Dependence on renal dialysis; Z79.4 Long term (current) use of insulin; Z83.3 Family history of diabetes mellitus; Z90.49 Acquired absence of other specified parts of digestive tract; Z68.34 Body mass index [BMI] 34.0-34.9, adult
CPT/HCPCS: 36415; 51702; 71045; 71275; 80048; 80053; 80202; 81001; 82962; 83735; 84100; 84484; 85014; 85018; 85025; 87040; 87070; 87205; 87426; 90935; 93005; 94640; 96365; 96372; 96375; 96376; 97110; 97116; 97163; 97530; 99291; G0378; J1642; J1815; J2543; P9047

== ENCOUNTER 2023-01-15 13:14 | Emergency (ER) | payer OTHER ==
[~2023-01-15] VITALS: Ht 170.2 cm; Wt 85.9 kg
[~2023-01-15 13:14] MED LIST changes: -AMOX500T92 PO; +CIPR-173 PO; -PRAV20TA3 PO
[2023-01-15] MEDS ORDERED: NEOMYCIN-BACITRACIN-POLYM UNITDOSE PKG TOP OINT TOP ONE (14:15)
[2023-01-15] MEDS ORDERED: TETANUS-DIPTH-ACEL PERTUSSIS 0.5ML SYR Tdap IM ONE (14:15)
[2023-01-15] MEDS ORDERED: LIDOCAINE 1% HCL (LOCAL ANESTH.) INJ 20ML MDV ID ONE (14:30)
[2023-01-15] MEDS ORDERED: ACET-1158 PO (19:38)
[2023-01-15] MEDS ORDERED: CEPH-510 PO (19:38)
[2023-01-15 20:00] VITALS: BP 152/74
== END 2023-01-15 20:16 | disposition home or self-care (01) ==
LOC: ER 13:14
DX: S81.811A Laceration without foreign body, right lower leg, initial encounter (principal); S51.811A Laceration without foreign body of right forearm, initial encounter; S40.011A Contusion of right shoulder, initial encounter; S40.021A Contusion of right upper arm, initial encounter; S20.211A Contusion of right front wall of thorax, initial encounter; I13.0 Hypertensive heart and chronic kidney disease with heart failure and stage 1 through stage 4 chronic kidney disease, or unspecified chronic kidney disease; E11.22 Type 2 diabetes mellitus with diabetic chronic kidney disease; N18.9 Chronic kidney disease, unspecified; I50.9 Heart failure, unspecified; Z90.49 Acquired absence of other specified parts of digestive tract; Z79.82 Long term (current) use of aspirin; Z79.4 Long term (current) use of insulin; Z79.899 Other long term (current) drug therapy; W18.39XA Other fall on same level, initial encounter; Y93.89 Activity, other specified; Y92.89 Other specified places as the place of occurrence of the external cause; Y99.8 Other external cause status
CPT/HCPCS: 12002; 71101; 73030; 73060; 73090; 73502; 73590; 73610; 90471; 90715

== ENCOUNTER 2023-01-28 09:23 | Emergency (ER) | payer OTHER ==
[~2023-01-28] VITALS: Ht 170.2 cm; Wt 87.2 kg
[~2023-01-28 09:23] MED LIST changes: +ACET-1158 PO; +CEPH-510 PO
[2023-01-28 10:16] VITALS: BP 130/46
== END 2023-01-28 10:17 | disposition home or self-care (01) ==
LOC: ER 09:23
DX: S81.811D Laceration without foreign body, right lower leg, subsequent encounter (principal); I13.0 Hypertensive heart and chronic kidney disease with heart failure and stage 1 through stage 4 chronic kidney disease, or unspecified chronic kidney disease; E11.22 Type 2 diabetes mellitus with diabetic chronic kidney disease; N18.9 Chronic kidney disease, unspecified; I50.9 Heart failure, unspecified; Z90.49 Acquired absence of other specified parts of digestive tract; X58.XXXD Exposure to other specified factors, subsequent encounter

== ENCOUNTER 2023-02-04 09:10 | Emergency (ER) | payer OTHER ==
[~2023-02-04] VITALS: Ht 170.2 cm; Wt 87.7 kg
[2023-02-04 09:43] VITALS: BP 103/44
== END 2023-02-04 09:57 | disposition home or self-care (01) ==
LOC: ER 09:10
DX: S81.811D Laceration without foreign body, right lower leg, subsequent encounter (principal); E11.22 Type 2 diabetes mellitus with diabetic chronic kidney disease; I13.0 Hypertensive heart and chronic kidney disease with heart failure and stage 1 through stage 4 chronic kidney disease, or unspecified chronic kidney disease; N18.9 Chronic kidney disease, unspecified; I50.89 Other heart failure; Z90.49 Acquired absence of other specified parts of digestive tract; X58.XXXD Exposure to other specified factors, subsequent encounter